=== PATIENT | female | born 1995 | race Hispanic/Latino ===

== ENCOUNTER 2021-07-07 12:23 | Emergency (ER) | payer MEDICAID, OTHER ==
[~2021-07-07] VITALS: Ht 172.7 cm; Wt 92.1 kg
[~2021-07-07 12:23] MED LIST: PREN1TAB80 PO
[2021-07-07] MEDS ORDERED: PROMETHAZINE HCL 25 MG/ML 1ML AMPULE IM ONE (13:00)
[2021-07-07] MEDS ORDERED: LACTATED RINGERS 1000ML 1,000 ML IV ONE ×2 (13:00→14:00)
[2021-07-07 13:04] LABS: BASOPHILS % (AUTO) 0.4 % (0.0-5.0); EOSINOPHILS % (AUTO) 0.2 % (0.0-8.0); HEMATOCRIT 42.6 % (36-48); LYMPHOCYTES % (AUTO) 14.2 % (21.0-51.0); MEAN CORPUSCULAR HEMOGLOBIN 31.5 pg (27.0-33.0); MEAN CORPUSCULAR VOLUME 90.1 fL (79-99); MONOCYTES % (AUTO) 4.7 % (3.0-13.0); NEUTROPHILS % (AUTO) 80.1 % (40.0-77.0); PLATELET COUNT (AUTO) 208 K/uL (130-400); RED BLOOD CELL COUNT(AUTO) 4.73 MIL/uL (4.00-5.50); WHITE BLOOD COUNT (AUTO) 9.9 K/uL (4.8-10.8)
[2021-07-07 13:10] VITALS: BP 108/74
[2021-07-07 13:44] LABS: CREATININE 0.6 mg/dL (0.5-1.5); POTASSIUM 3.4 mmol/L (3.5-5.1)
[2021-07-07 14:10] LABS: ALBUMIN 3.8 g/dL (3.5-5.0); BILIRUBIN,TOTAL 0.7 mg/dL (0.2-1.0); TOTAL PROTEIN, SERUM 7.1 g/dL (6.0-8.3)
[2021-07-07 14:24] LABS: APPEARANCE,URINE Cloudy (CLEAR); BILIRUBIN,URINE Small (NEGATIVE); COLOR,URINE Dark Yellow (YELLOW); GLUCOSE, URINE (UA) Negative (NEGATIVE); KETONES,URINE >=160 mg/dL (NEGATIVE); LEUKOCYTE ESTERASE ,URINE Large (NEGATIVE); NITRATE,URINE Negative (NEGATIVE); OCCULT BLOOD,URINE Negative (NEGATIVE); PROTEIN,URINE POS 1+ mg/dL (NEGATIVE)
[2021-07-07 14:33] LABS: BACTERIA,URINE Few /HPF (None Seen); MUCUS,URINE Moderate LPF (None Seen); RBC,URINE 0-1 /HPF (0-1); SQUAMOUS EPITHELIAL CELL,UR Few /HPF (0-2)
[2021-07-07] MEDS ORDERED: CEPH500C2 PO (14:36)
[2021-07-07] MEDS ORDERED: CEFTRIAXONE 1G VIAL ONE (14:38)
[2021-07-07] MEDS ORDERED: CEFTRIAXONE 1G VIAL IVP ONE (15:00)
[2021-07-07] MEDS ORDERED: MACR100 PO (15:25)
[2021-07-07] MEDS ORDERED: PHEN12S PR (15:25)
[2021-07-07] MEDS ORDERED: ONDA4TAB10 PO (15:25)
[2021-07-07] MEDS ORDERED: PREN-61 PO (15:25)
== END 2021-07-07 16:13 | disposition home or self-care (01) ==
LOC: EDH 12:23
DX: O23.41 Unspecified infection of urinary tract in pregnancy, first trimester (principal); O21.0 Mild hyperemesis gravidarum; Z3A.08 8 weeks gestation of pregnancy
CPT/HCPCS: 36415; 76801; 80053; 81001; 84702; 85025; 87088; 96361; 96372; 96374; 99285; J0696; J2550; J7120